=== PATIENT | female | born 1980 | race Caucasian/White ===

== ENCOUNTER → 2020-08-22 11:13 | Outpatient (CLI) | payer OTHER, SELFPAY ==
--- NOTE | ~2020-08-22 | MM_ITS ---
EXAMINATION: MM screening [facility] HISTORY: Screening TECHNIQUE: Craniocaudal and mediolateral oblique 3-D tomosynthesis images were obtained and synthetic 2-D images were generated. CAD analysis was submitted and interpreted. COMPARISON: Comparison to multiple prior studies sequentially, with oldest reviewed study dated 04/2015. BREAST PARENCHYMAL COMPOSITION: The breasts are heterogeneously dense, which may obscure small masses . FINDINGS: There is no evidence of suspicious mass, calcification, or architectural distortion to sugg est malignancy in either breast. There has been no suspicious interval change. IMPRESSION: 1. No mammographic evidence of malignancy. 2. Recommend routine screening mammography in one year. BI-RADS Category 1: Negative Reviewed, dictated and finalized at location A. M BLOCKER
== END ==
PROVIDERS: Visit Provider Obstetrics & Gynecology
DX: Z12.31 Encounter for screening mammogram for malignant neoplasm of breast (principal)
CPT/HCPCS: 77063; 77067

== ENCOUNTER → 2021-02-24 09:07 | Outpatient (CLI) | payer BC, SELFPAY ==
[2021-02-24 18:42] LABS: SARS-CoV-2 RNA PCR Negative
== END ==
PROVIDERS: PCP Internal Medicine; Visit Provider Clinical Nurse Specialist
DX: Z20.822 Contact with and (suspected) exposure to COVID-19 (principal); R06.02 Shortness of breath
CPT/HCPCS: C9803; U0003; U0005

== ENCOUNTER → 2021-04-04 06:33 | Outpatient (CLI) | payer BC, SELFPAY ==
[2021-04-04 17:24] LABS: SARS-CoV-2 RNA PCR Negative
== END ==
PROVIDERS: PCP Internal Medicine; Visit Provider Clinical Nurse Specialist
DX: R55 Syncope and collapse (principal); R05 Cough; Z20.822 Contact with and (suspected) exposure to COVID-19
CPT/HCPCS: C9803; U0003; U0005

== ENCOUNTER 2021-07-30 10:04 | Emergency (ER) | payer BC, SELFPAY ==
[2021-07-30 10:16] VITALS: BP 133/66; PULSE 88; RESP 16; TEMP 36.7; O2SAT 100
--- NOTE | 2021-07-30 10:35 | ED.FEMALEGU ---
HPI - Female Genitourinary General Chief complaint: Urogenital-Female Stated complaint: UTI Source: patient and RN notes reviewed Limitations: no limitations History of Present Illness HPI Narrative: The patient, a non-smoker/nondrinker presents with 1 day history of urinary frequency, urgency and mild dysuria associated with slightly worsening of chronic low back pain. No fever, vomiting/diarrhea, blood, .vaginal discharge -she declines STD testing moods are mild, worse with micturition. Related Data Home Medications Medication Instructions Recorded Confirmed levocetirizine 5 mg tablet 5 mg PO DAILY 08/04/20 07/30/21 azelastine-fluticasone 137 mcg-50 2 spray INTRANASAL ONCE g 07/04/21 07/30/21 mcg/spray nasal spray cholecalciferol (vitamin D3) 125 10,000 unit PO DAILY cap 07/04/21 07/30/21 mcg (5,000 unit) capsule melatonin 1 mg tablet 1 mg PO QHS 07/04/21 07/30/21 progesterone micronized 200 mg 300 mg PO QHS cap 07/04/21 07/30/21 capsule testosterone 20.25 mg/1.25 gram 1 pump TOPICAL DAILY 07/04/21 07/30/21 (1.62 %) transdermal gel pump thyroid (pork) 90 mg tablet 105 mg PO DAILY tablet 07/04/21 07/30/21 Allergies Allergy/AdvReac Type Severity Reaction Status Date / Time No Known Drug Allergies Allergy Unknown Unknown Verified 07/30/21 10:16 Sea Food Allergy Severe Dyspnea / Uncoded 07/30/21 10:16 SOB Review of Systems Review of Systems: General/Constitutional: No weight loss,fever Eyes: N0: Redness,discharge Ears/Nose/Throat: No: Epistaxis,ear discharge Respiratory: Denies: Hemoptysis Gastrointestinal: No Vomiting, Bleeding-rectal Skin: No Lumps, eruption Neurologic: No Focal Weakness,Sz Hematologic: Denies: Petechiae/Purpura Psychiatric: No: Suicida ideationl All Other Systems: Reviewed and Negative [facility] Past Medical History Medical History Anxiety Asthma delivery delivered x3 Chronic back pain Chronic neck pain Chronic shoulder pain COVID-19 Macromastia Miscarriage Other chronic pain Seasonal allergies Surgical History Surgical History History of breast augmentation History of removal of ovarian cyst 1996 Family History Family History Grandparent Family history of malignant neoplasm of breast Mother Family history of migraine headaches Patient's mother is in good health Father Patient's father is in good health Sibling Patient's brother is in good health Social History Social History Smoking status: Former smoker Smoking end date: 10/21/04 Alcohol intake: current Comments At time of signature, agree with nursing past medical, surgical, social and family history. There is no relevant family history pertinent to the presenting complaint Exam Narrative: General Appearance: Well appearing, No distress, Conjunctiva clear Mouth/Throat: Normal appearing, Normal lips, Supple Respiratory: Airway patent, No respiratory distress Abdomen: Soft, Non-tender, no CVAT Musculoskeletal: Full ROM Skin: Warm, Dry Neurological: A&O x3, CN II-X intact Psychiatric: Normal mood, Normal affect Course Vital Signs Vital signs: Vital Signs Temperature 98.0 F 07/30/21 10:16 Pulse Rate 88 07/30/21 10:16 Respiratory Rate 16 07/30/21 10:16 Blood Pressure 133/66 07/30/21 10:16 Pulse Oximetry 100 07/30/21 10:16 Temperature 98.0 F 07/30/21 10:16 Pulse Rate 88 07/30/21 10:16 Respiratory Rate 16 07/30/21 10:16 Blood Pressure 133/66 07/30/21 10:16 Pulse Oximetry 100 07/30/21 10:16 MDM - Female Genitourinary Lab Data Labs: Urine Glucose Negative Reference Range: Negative Urine Bilirubin Negative
== END 2021-07-30 10:40 | disposition home or self-care (01) ==
PROVIDERS: Emergency Provider Emergency Medicine; PCP Internal Medicine
DX: N30.00 Acute cystitis without hematuria (principal); Z87.891 Personal history of nicotine dependence; J45.909 Unspecified asthma, uncomplicated; Z86.16 Personal history of COVID-19
CPT/HCPCS: 81003; 87077; 87086; 87088; 87186; 99213; G0463

== ENCOUNTER 2022-04-17 10:10 | Emergency (ER) | payer BC, SELFPAY ==
[2022-04-17 10:25] VITALS: BP 131/75; PULSE 74; RESP 18; TEMP 37.2; O2SAT 100
--- NOTE | 2022-04-17 10:26 | ED.URI ---
HPI - URI/Sore Throat General Chief Complaint: Upper Respiratory Infection Stated Complaint: Cough,Body Aches,Sore Throat,Sinus Time Seen by Provider: 04/17/22 10:29 Source: patient, RN notes reviewed and old records reviewed Mode of arrival: ambulatory Limitations: no limitations History of Present Illness HPI Narrative: 41-year-old female who [facility] with complaints of cough, body aches, sore throat, and sinus congestion since Saturday. Patient reports that she has had COVID vaccinations but did not have flu shot this year. Patient does have history of asthma has had non-productive cough and chest feels a little tight with exertion has been using her inhaler, denies any wheezing noted or any acute dyspnea. MD elicited complaint: cough, sore throat, rhinorrhea, nasal congestion and other (Body aches) Pertinent past history: asthma Onset (ago): day(s) (2-3 days) Treatments prior to arrival: ibuprofen and other (inhaler, Xyzal, singulair, nasal spray) Related Data Home Medications Medication Instructions Recorded Confirmed levocetirizine 5 mg tablet (Xyzal) 5 mg PO DAILY 08/04/20 04/17/22 cholecalciferol (vitamin D3) 125 10,000 unit PO DAILY 07/04/21 04/17/22 mcg (5,000 unit) capsule (Dialyvite Vitamin D) melatonin 1 mg tablet 1 mg PO QHS 07/04/21 04/17/22 progesterone micronized 200 mg 300 mg PO QHS 07/04/21 04/17/22 capsule testosterone 20.25 mg/1.25 gram 1 pump topical DAILY 07/04/21 04/17/22 (1.62 %) transdermal gel pump thyroid (pork) 90 mg tablet 105 mg PO DAILY 07/04/21 04/17/22 albuterol 1 inh DIRECTED 04/17/22 04/17/22 Allergies Allergy/AdvReac Type Severity Reaction Status Date / Time Sea Food Allergy Severe Dyspnea / Uncoded 04/17/22 10:35 SOB Review of Systems Review of Systems: CONSTITUTIONAL: Denies fever, chills, or sweats. EYES: Denies visual changes, redness, or discharge. ENT: Positive for rhinorrhea, congestion, sore throat, no otalgia. CARDIOVASCULAR: Denies chest pain, palpitations, or edema. RESPIRATORY: Positive for dry cough denies any acute dyspnea, reports some tightness to chest with cough GASTROINTESTINAL: Denies abdominal pain, nausea, vomiting, or diarrhea. GENITOURINARY: Denies dysuria or hematuria. SKIN: Denies rash or itching. MUSCULOSKELETAL: Denies back pain, joint pain, reports body aches NEUROLOGIC: Denies headache, numbness, or weakness. PSYCHIATRIC: History of anxiety or depression. All systems reviewed & are unremarkable except as noted in HPI and below PMFSH Past Medical History Medical History (Updated 04/17/22 @ 10:58 by Elisha Mead NP) Anxiety Asthma delivery delivered x3 Chronic back pain Chronic neck pain Chronic shoulder pain COVID-19 Encounter for tubal ligation Macromastia Miscarriage Obesity Other chronic pain Seasonal allergies Surgical History Surgical History (Updated 04/17/22 @ 10:58 by Elisha Mead NP) History of breast augmentation History of removal of ovarian cyst 1996 History of tubal ligation Previous section Family History Family History Grandparent Family history of malignant neoplasm of breast Mother Family history of migraine headaches Patient's mother is in good health Father Patient's father is in good health Sibling Patient's brother is in good health Social History Social History (Updated 04/17/22 @ 10:48 by Elisha Mead NP) Social History: Caffeine-daily Coffee Smoking status: Former smoker Smoking end date: 10/21/04 Alcohol intake: current Alcohol use details: occasionally Substance use type: does not use Living arrangements: with family Gender identity (if verbalized by the patient): Female Comments At time of signature, agree with nursing past medical, surgical, social and family history. There is no relevant family history pertinent to the presenting complaint Exam Na
== END 2022-04-17 11:02 | disposition home or self-care (01) ==
PROVIDERS: Emergency Provider Registered Nurse; PCP Internal Medicine
DX: J06.9 Acute upper respiratory infection, unspecified (principal); R05.9 Cough, unspecified; Z20.822 Contact with and (suspected) exposure to COVID-19; Z87.891 Personal history of nicotine dependence; J45.909 Unspecified asthma, uncomplicated; Z86.16 Personal history of COVID-19
CPT/HCPCS: 87081; 87426; 87804; 87880; 99213; C9803; G0463

== ENCOUNTER 2023-01-15 19:25 | Emergency (ER) | payer OTHER, SELFPAY ==
[2023-01-15 19:36] VITALS: BP 124/81; PULSE 85; RESP 20; TEMP 36.2; O2SAT 100
--- NOTE | 2023-01-15 19:42 | ED.URI ---
HPI - URI/Sore Throat General Chief Complaint: Upper Respiratory Infection Stated Complaint: sob,cough Time Seen by Provider: 01/15/23 19:42 Source: patient Mode of arrival: ambulatory Limitations: no limitations History of Present Illness HPI Narrative: 42-year-old female with a history of asthma presented for complaint of cough and sore throat for 4 days. Also reports fatigue at the onset. She started taking penicillin prescribed by doctor [facility] 3 days ago, but states she is not feeling better. She is taking her scheduled Singulair, Claritin, and nasal sprays along with Mucinex and Advil. She used albuterol inhaler for the 1st time today. She denies shortness of breath, wheezing, chest tightness, dizziness, nausea, vomiting, fevers or chills. 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 Negative covid test at home today. Related Data Home Medications Medication Instructions Recorded Confirmed levocetirizine 5 mg tablet (Xyzal) 5 mg PO DAILY 08/04/20 01/15/23 cholecalciferol (vitamin D3) 125 10,000 unit PO DAILY 07/04/21 01/15/23 mcg (5,000 unit) capsule (Dialyvite Vitamin D) melatonin 1 mg tablet 1 mg PO QHS 07/04/21 01/15/23 progesterone micronized 200 mg 300 mg PO QHS 07/04/21 01/15/23 capsule testosterone 1 pump topical DAILY 07/04/21 01/15/23 thyroid (pork) 90 mg tablet 105 mg PO DAILY 07/04/21 01/15/23 penicillin V potassium 500 mg 500 mg PO BID 01/15/23 01/15/23 tablet Allergies Allergy/AdvReac Type Severity Reaction Status Date / Time Sea Food AdvReac Severe Dyspnea / Uncoded 01/15/23 19:34 SOB Review of Systems Review of Systems: CONSTITUTIONAL: Denies body aches, fever, chills, or sweats. EYES: Denies visual changes, redness, or discharge. ENT: Denies rhinorrhea, congestion, or otalgia. CARDIOVASCULAR: Denies chest pain, palpitations, or edema. RESPIRATORY: Reports cough, denies sob, wheezing. GASTROINTESTINAL: Denies abdominal pain, nausea, vomiting, or diarrhea. SKIN: Denies rash, itching, or wounds. MUSCULOSKELETAL: Denies back pain, joint pain, or myalgia. NEUROLOGIC: Denies headache, numbness, tingling, or weakness. All systems reviewed & are unremarkable except as noted in HPI and below PMFSH Past Medical History Medical History Anxiety Asthma delivery delivered x3 Chronic back pain Chronic neck pain Chronic shoulder pain COVID-19 Encounter for tubal ligation Macromastia Miscarriage Obesity Other chronic pain Seasonal allergies Surgical History Surgical History History of breast augmentation History of removal of ovarian cyst 1996 History of tubal ligation Previous section Family History Family History Grandparent Family history of malignant neoplasm of breast Mother Family history of migraine headaches Patient's mother is in good health Father Patient's father is in good health Sibling Patient's brother is in good health Social History Social History Social History: Caffeine-daily Coffee Smoking status: Former smoker Smoking end date: 10/21/04 Alcohol intake: current Alcohol use details: occasionally Substance use type: does not use Living arrangements: with family Gender identity (if verbalized by the patient): Female Comments At time of signature, I have reviewed and agree with nursing past medical, surgical, social and family history unless otherwise noted. Please see nursing chart for further information. There is no relevant family history pertinent to the presenting complaint Exam Narrative: GENERAL: Well-appearing, in no acute distress. EYES: EOMI. No redness or drainage. Conjunctivae normal. ENT: Mucous membranes pink and moist. No rhinorrhea. TMs normal bila
== END 2023-01-15 19:56 | disposition home or self-care (01) ==
PROVIDERS: Emergency Provider Nurse Practitioner Family; PCP Internal Medicine
DX: B34.9 Viral infection, unspecified (principal); Z87.891 Personal history of nicotine dependence; J45.909 Unspecified asthma, uncomplicated; E66.9 Obesity, unspecified; Z68.28 Body mass index [BMI] 28.0-28.9, adult; Z86.16 Personal history of COVID-19; F41.9 Anxiety disorder, unspecified
CPT/HCPCS: 99213; G0463

== ENCOUNTER → 2023-02-05 15:54 | Outpatient (CLI) | payer OTHER, SELFPAY ==
--- NOTE | ~2023-02-05 | MM_ITS ---
EXAMINATION: MM screening [facility] BI w chelsey HISTORY: Screening mammogram TECHNIQUE: Craniocaudal and mediolateral oblique 3-D tomosynthesis images were obtained and synthetic 2-D images were generated. CAD analysis was submitted and interpreted. COMPARISON: 08/22/2020, 01/26/2015, 01/25/2015 BREAST PARENCHYMAL COMPOSITION: The breasts are heterogeneously dense, which may obscure small masses . FINDINGS: No suspicious mass, calcification, or architectural distortion are identified in either vasiliy ast to suggest malignancy. There has been no suspicious interval change. IMPRESSION: 1. No mammographic evidence of malignancy. 2. Recommend routine screening mammography in one year. BI-RADS Category 1: Negative Reviewed, dictated and finalized at location A.
== END ==
PROVIDERS: PCP Obstetrics & Gynecology Gynecology; Visit Provider Obstetrics & Gynecology
DX: Z12.31 Encounter for screening mammogram for malignant neoplasm of breast (principal)
CPT/HCPCS: 77063; 77067

== ENCOUNTER 2024-01-27 13:31 | Outpatient (CLI) | payer OTHER, SELFPAY ==
--- NOTE | ~2024-01-27 | US_ITS ---
Pelvic ultrasound. Clinical History: Ovarian cyst Technique: Realtime transabdominal and transvaginal scanning of the pelvis was performed. Color flow Doppler and Doppler spectral analysis were performed. Findings: The uterus is anteverted. The endometrial stripe has a thickness of 7 mm. 1.2 x 0.6 x 0.7 cm hypoechoic area present along the posterior margin of the endometrial stripe, possibly ill-defined fibroid. Small nabothian cyst present. The right ovary measures 2.0 x 1.0 x 1.7 cm. No significant right ovarian or adnexal mass is seen. The left ovary measures 1.6 x 1.5 x 2.5 cm. No significant left ovarian or adnexal mass is seen. There is no evidence of free fluid in the cul de sac. Impression: Possible small ill-defined fibroids, as above. Reviewed, dictated and finalized at [facility]. Impression: Possible small ill-defined fibroids, as above.
== END 2024-01-27 13:32 ==
PROVIDERS: PCP Obstetrics & Gynecology Gynecology; Visit Provider Obstetrics & Gynecology Gynecology
DX: R10.31 Right lower quadrant pain (principal)
CPT/HCPCS: 76830

== ENCOUNTER 2024-06-06 08:45 | Outpatient (CLI) | payer OTHER, SELFPAY ==
--- NOTE | ~2024-06-06 | MM_ITS ---
EXAMINATION: MM screening [facility] w [facility] HISTORY: Screening TECHNIQUE: Craniocaudal and mediolateral oblique 3-D tomosynthesis images were obtained and synthetic 2-D images were generated. CAD analysis was submitted and interpreted. COMPARISON: Comparison to multiple prior studies sequentially, with oldest reviewed study dated 04/2015. BREAST PARENCHYMAL COMPOSITION: Not dense: There are scattered areas of fibroglandular density. FINDINGS: There is no evidence of suspicious mass, calcification, or architectural distortion to sugg est malignancy in either breast. There has been no suspicious interval change. IMPRESSION: 1. No mammographic evidence of malignancy. 2. Recommend routine screening mammography in one year. BI-RADS Category 1: Negative Reviewed, dictated and finalized at location B.
== END 2024-06-06 08:46 ==
PROVIDERS: PCP Obstetrics & Gynecology Gynecology; Visit Provider Obstetrics & Gynecology
DX: Z12.31 Encounter for screening mammogram for malignant neoplasm of breast (principal)
CPT/HCPCS: 77063; 77067

== ENCOUNTER 2024-12-08 15:01 | Outpatient (CLI) | payer OTHER, SELFPAY ==
--- NOTE | ~2024-12-08 | XR_ITS ---
EXAMINATION: [id number] Exam Date/Time: 12/08/2024 15:17 FREIGHT CHECKER HISTORY: R07.81 - Pleurodynia Comparison: None. RESULT: Lines, tubes, and devices: None. Lungs and pleura: Clear. Cardiomediastinal silhouette: Stable. Other: No acute osseous or upper abdominal finding. IMPRESSION: No acute cardiopulmonary process. No acute osseous finding in the left ribs Reviewed, dictated and finalized at location K. GHT CHECKER
== END 2024-12-08 15:02 | disposition home or self-care (01) ==
PROVIDERS: PCP Nurse Practitioner; Visit Provider Nurse Practitioner
DX: R07.81 Pleurodynia (principal)
CPT/HCPCS: 71101

== ENCOUNTER 2025-01-04 11:39 | Emergency (ER) | payer OTHER, SELFPAY ==
[2025-01-04 11:46] VITALS: BP 128/74; PULSE 72; RESP 16; TEMP 37.2; O2SAT 99
[2025-01-04 11:54] LABS: EDUAAPPEAR Mucus Threads; EDUABILI Negative (Negative); EDUABLOOD 2+ (Negative); EDUACOLOR1 Yellow; EDUAGLUCOSE Negative (Negative); EDUAKETONE Negative (Negative); EDUALEUKO 3+ (Negative); EDUANITRATE Positive (Negative); EDUAPH 8.5; EDUAPROTEIN 3+ (Negative); EDUAUROBILI 0.2
--- NOTE | 2025-01-04 12:06 | ED.FEMALEGU ---
HPI - Female Genitourinary General Chief complaint: Urogenital-Female Stated complaint: UTI Time Seen by Provider: 01/04/25 11:55 Source: patient, RN notes reviewed and old records reviewed Mode of arrival: ambulatory Limitations: no limitations History of Present Illness HPI Narrative: 44-year-old female presents to the [facility] with complaints frequency, urgency and burning with urination that started last night. Noticed blood in her urine this morning. Related Data Home Medications ?Medication ?Instructions ?Recorded ?Confirmed ?Last Taken ?Type cholecalciferol (vitamin D3) 125 10,000 unit PO DAILY 07/04/21 12/08/24 Unknown History mcg (5,000 unit) capsule (Dialyvite Vitamin D) melatonin 1 mg tablet 1 mg PO QHS 07/04/21 12/08/24 Unknown History progesterone micronized 200 mg 300 mg PO QHS 07/04/21 12/08/24 Unknown History capsule testosterone 1 pump topical DAILY 07/04/21 12/08/24 Unknown History thyroid (pork) 90 mg tablet 105 mg PO DAILY 07/04/21 12/08/24 Unknown History cetirizine 10 mg tablet (Zyrtec) 10 mg PO DAILY PRN 07/08/24 12/08/24 Unknown History multivitamin (Multiple Vitamins 1 tablet PO DAILY 12/08/24 12/08/24 Unknown History tablet) Allergies Allergy/AdvReac Type Severity Reaction Status Date / Time Sea Food AdvReac Severe Dyspnea / Uncoded 01/04/25 11:41 SOB Review of Systems Review of Systems: All systems reviewed & are unremarkable except as noted in HPI and below Constitutional: Constitutional: Reports no additional constitutional complaints ENT: Reports system reviewed and no additional complaints, except as documented Cardiovascular: Cardiovascular: Reports no additional cardiovascular complaints, Denies chest pain and Denies dyspnea Respiratory: Respiratory: Reports no additional respiratory complaints, Denies chest congestion, Denies cough and Denies dyspnea Genitourinary: Genitourinary: Reports as per HPI Musculoskeletal: Musculoskeletal: Reports no additional musculoskeletal complaints Integumentary/Breasts: Skin/Breast: Reports system reviewed and no additional complaints, except as docu PMFSH Past Medical History Medical History Encounter for tubal ligation Obesity COVID-19 delivery delivered x3 Miscarriage Asthma Anxiety Chronic back pain Chronic neck pain Chronic shoulder pain Macromastia Other chronic pain Seasonal allergies Surgical History Surgical History History of tubal ligation Previous section History of breast augmentation History of removal of ovarian cyst 1996 Family History Family History Grandparent Family history of malignant neoplasm of breast Mother Family history of migraine headaches Patient's mother is in good health Father Patient's father is in good health Sibling Patient's brother is in good health Social History Social History Social History: Caffeine-daily Coffee Smoking status: Former smoker Smoking end date: 10/21/04 Alcohol intake: current Alcohol use details: occasionally Substance use type: does not use Lack of Transportation: No Lack of Food: Never True Current Housing: I Have Housing Concerned About Future Housing: No Difficulty Paying Gas/Electric Bills: No Difficulty Paying for Meds: No Currently Unemployed: No Education: Master's Degree or Higher Difficulty w/ Childcare or Family Care: No Living arrangements: with family Gender identity (if verbalized by the patient): Female Comments At the time of my signature, I reviewed and agree with the nursing past medical, surgical, social, and family history. There is no relevant family history pertinent to the patient complaint. Exam Const: General: cooperative, healthy appearing, comfortable, no acute distress, well developed, alert and well nourished Nutritional Appearance: well nourished Orientation/consciousness: patient oriented x3 Limitations: no limitations HENMT: Head: normal to inspection Eyes: General: appearance normal, both eyes and all related structures Alignment and Position: alignment normal Neck: Neck: normal visual inspection, full ROM, no lymphadenopathy and no meningeal signs Chest: Chest palpation & inspection: normal inspection of the chest Resp: Effort & Inspection: normal respiratory effort and able to speak in complete sentences Auscultation: clear to auscultation bilaterally, no crackles, no rales, no rhonchi and no wheezes Cardio: Rate: regular rate GI: GI Palp: No abdominal tenderness : General: Yes no CVA tenderness Skin: General skin exam: normal color and no rashes or lesions noted Neuro: General: patient oriented x3, gait normal, moves all extremities and no meningeal signs Cognition (Neuro): normal cognition Speech: normal speech Gait exam (Neuro): Normal gait present Extrem: General: normal to inspection, full ROM, capillary refill normal and normal gait Psych: Appearance: grossly normal and well kempt Mental Status: mental status grossly normal Speech and movement: Normal speech and movement present and Clear speech present Affect: normal affect Attitude: cooperative Course Course Level of Care: [facility] Visit Vital Signs Vital signs: Vital Signs Temperature 98.9 F 01/04/25 11:46 Pulse Rate 72 01/04/25 11:46 Respiratory Rate 16 01/04/25 11:46 Blood Pressure 128/74 01/04/25 11:46 Pulse Oximetry 99 01/04/25 11:46 Oxygen Delivery Room Air 01/04/25 11:46 Temperature 98.9 F 01/04/25 11:46 Pulse Rate 72 01/04/25 11:46 Respiratory Rate 16 01/04/25 11:46 Blood Pressure 128/74 01/04/25 11:46 Pulse Oximetry 99 01/04/25 11:46 Oxygen Delivery Room Air 01/04/25 11:46 Reviewed MDM - Female Genitourinary MDM Narrative Medical decision making narrative: Patient sitting comfortably exam room. Nontoxic stable. Patient presents for urinary symptoms. Urine dip shows positive leukocytes, nitrites and blood. Will start on antibiotic, will culture. Patient appropriate for outpatient treatment with close follow-up Discharge instructions reviewed with patient, as well as provided in writing per nursing staff. The instructions also include specific and strict return/GO TO THE ER as well as f/u information. All questions have been answered, and the patient deny any further questions with discharge and discharge plan. Some parts of this dictation were generated by voice recognition software and may contain typographical and/or grammatical inaccuracies. Differential Diagnosis Differential diagnosis: Likely urinary tract infection and cystitis Lab Data Labs: Lab Results 01/04/25 Range/Units 11:52 POC Urine Color Yellow POC Urine Clarity Mucus threads POC Urine pH 8.5 POC Ur Specif Viola 1.020 POC Urine Protein 3+ (Negative) POC Ur Glucose (UA) Negative (Negative) POC Urine Ketones Negative (Negative) POC Urine Blood 2+ (Negative) POC Urine Nitrite Positive (Negative) POC Urine Bilirubin Negative (Negative) POC Urine Urobilinogen 0.2 POC U Leukocyte Esteras 3+ (Negative) Reviewed Critical Care Time Critical Care Time Critical Care Time: No Discharge Plan Discharge Clinical Impression: Urinary tract infection Qualifiers: Urinary tract infection type: acute cystitis Hematuria presence: without hematuria Qualified Code(s): N30.00 - Acute cystitis without hematuria Patient Disposition: Home, Self-Care Condition: Stable Instructions: Antibiotic Form, Urinary Tract Infection in Women (DC) Additional Instructions: Increased water intake Take Tylenol as needed for pain Take antibiotic as prescribed Today your urine dip showed a probability of a UTI. You have been prescribed an antibiotic. Your urine will be sent to our lab for a culture. If at that time a bacteria grows that is not covered by the antibiotic prescribed you will be notified. Follow-up with primary care For new or worsening symptoms go directly to the emergency room Patient Language: Rwandan Prescriptions: New amoxicillin-pot clavulanate 875-125 mg tablet 1 tablet PO Q12H 5 Days Qty: 10 0RF No Action progesterone micronized 200 mg capsule 300 mg PO QHS testosterone 20.25 mg/1.25 gram (1.62 %) gel in metered-dose pump 1 pump topical DAILY Rx Instructions: apply 1 pump amount over max area of ONE upper arm and shoulder cholecalciferol (vitamin D3) [Dialyvite Vitamin D] 125 mcg (5,000 unit) capsule 10,000 unit PO DAILY thyroid (pork) 90 mg tablet 105 mg PO DAILY melatonin 1 mg tablet 1 mg PO QHS cetirizine [Zyrtec] 10 mg tablet 10 mg PO DAILY PRN multivitamin [Multiple Vitamins] Tablet 1 tablet PO DAILY montelukast 10 mg tablet See Rx Instructions .ROUTE .COMPLEX Qty: 90 3RF Dose Instruction: TAKE 1 TABLET DAILY Rx Instructions: TAKE 1 TABLET DAILY sertraline 100 mg tablet See Rx Instructions .ROUTE .COMPLEX Qty: 90 3RF Dose Instruction: TAKE 1 TABLET DAILY Rx Instructions: TAKE 1 TABLET DAILY Follow-up/Referrals: Sky Boswell DO [Primary Care Provider] - 2 Weeks ([facility] follow-up) Stand Alone Forms: Work/School Release IP Time of Disposition: 12:01
--- OUTSIDE RECORDS SUMMARY | 2025-01-04 14:12 | XMS_ITS | Clinical Summary ---
Author Organization [facility] Address [facility] [place] [address] Care Team Providers Care At Home Independent Call Center Agent Name Role Phone Caitlinradhawaleska Sky Carson DO Primary Care Provider [phone] Wale Unger MD Unavailable Felipe Burleson MD Unavailable [phone] Source Comments [facility],non-owned Affiliates and Associated Physician Practices is amultiple site organization consisting of ambulatory clinics and hospital sitesin [place], [place], [place] and [place]. This disclosure is being madepursuant to the Care Everywhere program and may not contain all information available regarding this patient. Last updated 18.[facility] Allergies No known active allergies Medications * Be aware that medications may not be up to date on this document. Alwaysverify current medications with the patient. Medication Sig Dispensed Refills Start Date End Date Status Vit-Fe Fumarate-FA ( VITAMIN) 28-0.8 MG tablet Take 1 Tab by mouth once daily Active montelukast (SINGULAIR) 10 MG tablet Take 10 mg by mouth at bedtime Active cetirizine (ZYRTEC) 10 MG tablet Take 10 mg by mouth once daily Active senna (SENOKOT) 8.6 MG tablet Take by mouth once daily Active sertraline (ZOLOFT) 50 MG tablet Take 50 mg by mouth once daily Active Active Problems Patient Care Coordination No te Formatting of this note migh t be different from the original. [id number] Problem Noted Date Diagnosed Date Supervision of elderly multigravida in first tri mester 10/04/2015 Advanced maternal age in multigravida Previous delivery, antepartum condition or complication IUFD (intrauterine ) Family History Medical History Relation Name Comments Thyroid Disease Maternal Grandmother Thyroid Disease Mother Relation Name Status Comments Maternal Grandmother Mother Social History Tobacco Use Types Packs/Day Years Used Date Smoking Tobacco: Former Cigarettes Q uit: 07/21/2007 Alcohol Use Standard Drinks/Week Comments No 0 (1 standard drink = 0.6 oz pur e alcohol) social prior to Sex and Gender Information Value Date Recorded Sex Assigned at Not on file Gender Identity Not on file Sexual Orientation Not on file Last Filed Vital Signs Vital Sign Reading Time Taken Comments Blood Pressure 126/80 05/20/2017 10:16 AM CDT Pulse 66 05/20/2017 10:16 AM CDT Temperature - - Respiratory Rate - - Oxygen Saturation - - Inhaled Oxygen Concentration - - Weight 77.6 kg (171 lb) 05/20/2017 10:16 AM CDT Height 160 cm (5' 3 ) 05/20/2017 10:16 AM CDT Body Mass Index 30.29 05/20/2017 10:16 AM CDT Plan of Treatment Health Maintenance Due Date Last Done Comments COLOGUARD (AGES 45-75) - COL ON CA SCREENING 1979 COLON MONITORING 1979 COLONOSCOPY - COLON CA SCREENING 1979 CT COLONOGRAPHY - COLON CA SCREENING 1979 Colorectal Cancer Screening 1979 FIT - COLON CA SCREENING 1979 FLEX SIG - COLON CA SCREENING 1979 LIPID TESTING 1979 MAMMOGRAM 1979 PAP SMEAR 1979 HIV SCREENING 1994 HEPATITIS C SCREENING 08/21/1997 DTAP/TDAP/TD VACCINES (1 - Tdap) 1998 HEPATITIS B VACCINE (1 of 3 - 19+ 3-dose series) 1998 COVID-19 VACCINE ( - 2023-2 5 season) 2024 INFLUENZA VACCINE (#1) 2024 DEPRESSION SCREENING 10/21/2024 ZOSTER VACCINE (1 of 2) 2029 HIB VACCINE Aged Out No longer eligi ble based on patient's age to complete this topic HPV VACCINE Aged Out No longer eligi ble based on patient's age to complete this topic MENINGOCOCCAL (Group B) VACC INE SHARED DECISION-MAKING Aged Out No longer eligibl e based on patient's age to complete this topic MENINGOCOCCAL GROUPS A/C/Y/W VACCINE Aged Out No longer eligible b ased on patient's age to complete this topic PNEUMOCOCCAL VACCINE Aged Out No long er eligible based on patient's age to complete this topic Care Teams At Home Independent Call Center Agent Relationship Specialty Start Date End Date Sky Boswell DO PCP - General Internal Medicine 05/20/17 [place] [address] [facility] [address] [place] [address] Endocrinology 05/20/17 Felipe Burleson MD [address] [facility] [address] [place], [place] [id number] Obstetrics and Gynecology 05/20/17
--- OUTSIDE RECORDS SUMMARY | 2025-01-04 14:12 | XMS_ITS | Encounter Summary ---
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 Historical Provider Final Res ult * PROCEDURE - RESULT (02/28/2018 12:00 AM CDT) Narrative 02/28/2018 12:00 AM CDT Ordered by an unspecified provider. us Historical Provider Final Res ult documented in this encounter Visit Diagnoses Not on filedocumented in this encounter Care Teams Net Web Application Developer Relationship Specialty Start Date End Date Sky Boswell DO PCP - General Internal Medicine 09/26/21 documented as of this encounter
--- OUTSIDE RECORDS SUMMARY | 2025-01-04 14:12 | XMS_ITS | Patient Health Record ---
Author Organization [facility] Address [address] [place] [address] Care Team Providers Care Lard Tub Washer Name Role Phone Sky Boswell Primary Care Provider Unavailab le Lina Verma Unavailable [phone] [employer], Provider Unavailable Unavailab le Allergies No Known Allergies Reason For Referral No Information Medications Medication SIG (Take, Route, Frequency, Duration) Notes Start Date End Date Status Xyzal Allergy 24HR 5 MG 1 tablet PO daily for 30 Active NASAL WASHES N/A DIRECTED INTRANASALLY NEEDED for 30 *Please review for potential replacement for e-prescription and drug interaction check* Active Zoloft 50 MG 1 tab(s) orally once a day for 30 day(s) Active XYZAL 5 mg 1 tablet PO daily for 30 Active Azelastine HCl 137 MCG/SPRAY 2 spray(s) intranasally 2 times a day for 90 days Active SINGULAIR 10 mg 1 tab(s) orally once a day for 90 days Active ZOLOFT 50 mg 1 tab(s) orally once a day for 30 day(s) Active PROAIR HFA 90 MCG/INH 2 PUFF(S) INHALED 4 TIMES A DAY for 30 DAY(S) *Please review for potential replacement for e-prescription and drug interaction check* Active AZELASTINE HYDROCHLORIDE NASAL 137 mcg/inh 2 spray(s) intranasally 2 times a day for 90 days Active Singulair 10 MG 1 tab(s) orally once a day for 90 days Active Social History Tobacco Use: Social History Observation Description Date Details (start date - stop date) Former Smoker NA - NA Smoking Smart Form: Question Answer Notes Are you a: former smoker Problems Problem Type SNOMED Code ICD Code Onset Dates Problem Status W/U Status Risk Notes Problem Chronic allergic conjunctivitis (35652128) Other chronic allergic conjunctivitis (H10.45) Active confirmed Problem Allergic rhinitis caused by pollen (disorder) (37149180) Allergic rhinitis due to pollen (J30.1) Active confirmed Problem Allergic rhinitis (03085908) Other allergic rhinitis (J30.89) Active confirmed Problem Uncomplicated mild persistent asthma (553724152) Mild persistent asthma, uncomplicated (J45.30) Active confirmed Problem Dermatitis (656786027) Dermatitis, unspecified (L30.9) Active confirmed Problem Cough (80398202) Cough (R05) Active confirmed Problem Allergic rhinitis caused by animal hair and dander (407061895754424) Allergic rhinitis due to animal (cat) (dog) hair and dander (J30.81) Active confirmed Problem Allergy to seafood (95837070) Allergy to seafood (Z91.013) Active confirmed Problem Allergy status t o other drugs, medicaments and biological substances (Z88.8) Active confirmed Encounters Encounter Location Date Provider Diagnosis [address] [address] 04/04/2024 Provider Bright Mild persistent asthma, uncomplicated J45.30 and Allergic rhinitis due to pollen J30.1 Assessments Encounter Date Diagnosis (ICD Code) Assessment Notes Treatment Notes Treatment Clinical Notes Section Notes 04/04/2024 Mild persistent asthma, uncomplicated (ICD-10 - J45.30) 04/04/2024 Allergic rhinitis due to pollen (ICD-10 - J30.1) Plan Of Treatment No Information Insurance Providers Payer Name Payer Address Payer Phone Subscriber Number Group Number Insured Name Patient Relationship to Insured Coverage Start Date Coverage End Date [facility] [address] [address] [place] [phone] [id number] Jackie Sargent Self - patient is the insured Medical (General) History Medical History History ICD Code Anxiety disorder, unspecified Mild intermittent asthma, uncomplicated Allergic rhinitis due to pollen Allergic rhinitis due to animal (cat) (d og) hair and dander Surgical History Surgery Date(Month/Year) ,, ovarian surgery-Cyst 1997 ablasion, tubal removal 2017 breast reduction 2018 Hospitalization History Reason Date(Month/Year) ,,
--- OUTSIDE RECORDS SUMMARY | 2025-01-04 14:12 | XMS_ITS ---
Author Organization [facility] Address [address] [place] [address] Care Team Providers Care Mate Ship Name Role Phone Sky Boswell Primary Care Provider Unavailab Lina Birch Unavailable [phone] REASON FOR VISIT Asthma follow-up Encounters Encounter Location Date Provider Diagnosis [facility] [address] [place] [address] 08/28/2023 Lina Verma Plan Of Treatment No Information Progress Notes * Herb BERKOWITZB:1980 (44 yo F)Acc No.[id number]:08/28/2023 Asthma F/U Patient: Jackie NOVAK Provider: Dagmar Verma MD :1980 A ge:43 Y S ex:Female Date:08/28/2023 Address[address] [facility] Pcp:Sky Boswell Subjective: * Chief Complaints: * 1 . Asthma follow-up. * Medical History: Objective: * Vitals: Assessment: Plan: * Treatment: * Billing Information: * Visit Code: * Procedure Codes: * Electronic signature of Sheron Verma MD on 01/04/2025 at 02:12 PM CDT Sign off status: Pending * Provider: Dagmar Verma MD Date: 10/28/2022 Generated for Solo larose/Lea/Giovanni on: 0 01/04/2025 02:12 PM CDT
--- OUTSIDE RECORDS SUMMARY | 2025-01-04 14:12 | XMS_ITS | Clinical Summary ---
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 Gender Identity Not on file Sexual Orientation Not on file Plan of Treatment Health Maintenance Due Date Last Done Comments Hepatitis C Virus (HCV) Screening 1979 TdaP Immunization 1979 Hepatitis B Immunization (1 of 3 - 19+ 3-dose series) 1998 Pap Smear 2000 Cervical Cancer Screening (CCS) 2009 HPV/Cotest 2009 Discussion re Starting/Frequency of Mammograms 2019 Influenza Immunization (#1) 2024 SARS-COV-2 Immunization (2023- season) 2024 11/15/2021, 05/11/2021, 05/11/2021 Colonoscopy 2024 Colorectal Cancer Screening 2024 Respiratory Syncytial Virus (RSV) Immunization (Adult) (1 - 1-dose 75+ series) 2054 Meningococcal Immunization (ACWY) Aged Out No longer eligible b ased on patient's age to complete this topic Pneumococcal Immunization Combined Aged Out No longer eligible b ased on patient's age to complete this topic Rotavirus Immunization Aged Out No lo nger eligible based on patient's age to complete this topic
--- OUTSIDE RECORDS SUMMARY | 2025-01-04 14:12 | XMS_ITS | Patient Health Summary ---
Author Organization [facility] Address [address] [facility] [place] [address] Care Team Providers Care Plastic Boat Patcher Name Role Phone Sky Boswell DO Primary Care Provider Wale Unger MD Unavailable Felipe Burleson MD Unavailable [phone] Note from [facility],non-owned Affiliates and Associated Physician Practices is amultiple site organization consisting of ambulatory clinics and hospital sitesin [place], [place], [place] and [place]. This disclosure is being madepursuant to the Care Everywhere program and may not contain all information available regarding this patient. Last updated 18.[facility] Allergies No known active allergies Medications * Be aware that medications may not be up to date on this document. Alwaysverify current medications with the patient. * Vit-Fe Fumarate-FA ( VITAMIN) 28-0.8 MG tablet Take 1 Tab by mouth once daily * montelukast (SINGULAIR) 10 MG tablet Take 10 mg by mouth at bedtime * cetirizine (ZYRTEC) 10 MG tablet Take 10 mg by mouth once daily * senna (SENOKOT) 8.6 MG tablet Take by mouth once daily * sertraline (ZOLOFT) 50 MG tablet Take 50 mg by mouth once daily Active Problems Problem Noted Date Diagnosed Date Supervision of elderly multigravida in [facility] 10/04/2015 Advanced maternal age in multigravida Previous delivery, antepartum condition or complication IUFD (intrauterine ) Social History Tobacco Use Types Packs/Day Years [...] Mass Index 30.29 05/20/2017 10:16 AM CDT Procedures * T3 FREE(Performed 06/25/2017) Performed for Thyroid nodule * T4 FREE(Performed 06/25/2017) Performed for Thyroid nodule * TSH(Performed 06/25/2017) Performed for Thyroid nodule * T4 FREE (EXTERNAL RESULT ENTRY)(Performed 05/08/2017) * TSH (EXTERNAL RESULT ENTRY)(Performed 05/08/2017) * SONOGRAM - COMPLETE(Performed 04/10/2017) Performed for Supervision of elderly multigravida in first trimester (HCC), Recurrent loss, antepartum condition or complication ([facility]) * T4 FREE (EXTERNAL RESULT ENTRY)(Performed 03/08/2017) * T4 FREE (EXTERNAL RESULT ENTRY)(Performed 03/08/2017) * TSH (EXTERNAL RESULT ENTRY)(Performed 03/08/2017) * SONOGRAM - COMPLETE(Performed 03/06/2017) Performed for Supervision of elderly multigravida in first trimester (HCC), Previous delivery, antepartum condition or complication (HCC) * T4 FREE (EXTERNAL RESULT ENTRY)(Performed 11/05/2016) * TSH (EXTERNAL RESULT ENTRY)(Performed 11/05/2016) * SONOGRAM - COMPLETE(Performed 09/04/2016) Performed for Advanced maternal age in multigravida, first trimester (HCC), Previous delivery, antepartum condition or complication (HCC) * T4 FREE (EXTERNAL RESULT ENTRY)(Performed 12/06/2015) * TSH (EXTERNAL RESULT ENTRY)(Performed 12/06/2015) * SONOGRAM - COMPLETE(Performed 11/28/2015) Performed for Supervision of other high risk pregnancies, second trimester (HCC) * SONOGRAM - COMPLETE(Performed 10/04/2015) Results * T3 FREE (06/25/2017 3:09 PM CDT) T3 Free 2.4 2.0 - 4.4 pg/mL [facility] INSURANCE BILL Blood BLOOD SPECIMEN / Unknown 06/25/2017 3:09 PM CDT 06/25/2017 Narrative Resulting Agency Comment [facility] [address] [facility] [phone] Wale Unger MD LAB - CHEMISTRY ERON SOTO Performing Organization Address City/[facility] [place]/ZIP Co de Phone Number [facility] INSURANCE BILL [address] [place] [address] * TSH (06/25/2017 3:09 PM CDT) TSH 1.310 0.450 - 4.500 uIU/mL [facility] INSURANCE BILL Blood BLOOD SPECIMEN / Unknown 06/25/2017 3:09 PM CDT 06/25/2017 Narrative Resulting Agency Comment [facility] [address] [facility] [phone] Wale Unger MD LAB - CHEMISTRY ERON SOTO Performing Organization Address City/[facility] [place]/ZIP Co de Phone Number [facility] INSURANCE BILL [address] [place] [address] * T4 FREE (06/25/2017 3:09 PM CDT) T4 Free 0.93 0.82 - 1.77 ng/dL [facility] INSURANCE BILL Blood BLOOD SPECIMEN / Unknown 06/25/2017 3:09 PM CDT 06/25/2017 Narrative Resulting Agency Comment [facility] [address] [facility] [phone] Wale Unger MD LAB - CHEMISTRY ERON SOTO [facility] INSURANCE BILL [address] [place] [address] * (ABNORMAL) TSH (EXTERNAL RESULT ENTRY) (05/08/2017) Only the most recent of4 resultswithin the time period is included. TSH (EXTERNAL RESULT) 0.347(A) 0.465 - 4.680 uIU/mL Blood BLOOD SPECIMEN / Unknown 05/08/2017 Historical Provider MD LAB - CHEMISTRY O RDERABLES * T4 FREE (EXTERNAL RESULT ENTRY) (05/08/2017) Only the most recent of5 resultswithin the time period is included. T4 Free (EXTERNAL RESULT) 0.79 0.78 - 2.19 ng/dl Blood BLOOD SPECIMEN / Unknown 05/08/2017 Historical Provider MD LAB - CHEMISTRY O RDERABLES * SONOGRAM - COMPLETE (04/10/2017 9:47 AM CDT) Only the most recent of5 resultswithin the time period is included. Anatomical Region Laterality Modality Other 04/10/2017 9:47 AM CDT Narrative 04/10/2017 11:16 AM CDT [facility] PHONE: FAX: Pat. Name: CRISTHIAN BERKOWITZ Pat. No: [id number] Study Date: 04/10/2017 9:47am , Age: 10 1980, 36 Pregnancies: 5, Para 3, Ab 1 Height: 62 in Weight: 167 lb LMP: 12/29/2016 GA by LMP: 14w4d GA by 1st: 14w4d GA by US: 14w3d GA Selected: 14w4d (LMP) KARTHIK: 10/05/2017 Referring MD: FELIPE BURLESON MD Maintenance Helper: Delmy Hampton [facility] CPT4: 92810 BMI: 30.54 Hist/Ind: Viability 17-19 week demise in 11/2015 <20 week demise 10/2016 AMA Unicornuate uterus History of CD x 3 Class I obesity MEASUREMENTS & AGE GROWTH EVALUATION Measurement GA Range Srce %for GA Ratios ----- ---- ------- BPD 2.7 cm 14w5d ([id number]) Hadl BPD 53% FL/BPD 0.49 HC 10.0 cm 14w5d (93o1p-47t2n) Hadl HC 52% FL/AC 0.16 AC 8.1 cm 14w3d (55n6u-58y0z) Hadl AC 47% HC/AC 1.23 (1.11 - 1.30) FL 1.3 cm 13w6d (18v1k-06m3z) Hadl FL 26% CI 0.76 GA for sonogram 14w3d ([id number]) Weight Estimate: based on (BPD,HC,AC,FL) Avg Weight: 93 gm (79-107) Hadlock : 0lbs, 3oz Normal: 107 gm (89-126) Hadlock Wt% 19% for 14w4d Heart Rate: 155 bpm CLINICAL SUMMARY Study Number: 1 A single fetus is identified in cephalic presentation. The measurements today are consistent with appropriate growth compared to previous study. The KARTHIK selected is based on her LMP and a prior ultrasound examination (confirmed). The amniotic fluid volume is within normal limits. The placenta is anterior. No major malformations are seen within the limitations of ultrasound examination. The patient was advised that ultrasound does not allow detection of all structural or chromosomal abnormalities. IMPRESSION: 1. Single, live, IUP at 14w4d 2. AGA size 3. Normal amniotic fluid volume 4. Anterior placenta 5. Anatomy survey is incomplete and limited by positioning, early gestational age, and maternal body habitus. RECOMMEND: Follow up ultrasound in 4 weeks to complete anatomic survey and assess growth. Consider follow growth at approximately 4 week intervals with history of maternal uterine anomaly. Patient plans to have all future OB ultrasounds at primary OB provider with Dr. Burleson. Thank you for allowing us the opportunity to care for your patient. Matt Arroyo MD <Electronic Signature> 04/10/2017 11:16am Fabio Barker MD [facility] ORDERABLES Care Teams Plastic Boat Patcher Relationship Specialty Start Date End Date Sky Boswell DO PCP - General Internal Medicine 05/20/17 [place] [address] [facility] [address] [place] [id number] Endocrinology 05/20/17 Felipe Burleson MD [address] [place], [place] [id number] Obstetrics and Gynecology 05/20/17
--- OUTSIDE RECORDS SUMMARY | 2025-01-04 14:12 | XMS_ITS | Continuity of Care Document ---
Author Organization [facility] Address [address] [place] [address] [place] [address] Phone Care Team Providers Care Drug Abuse Program Coordinator Name Role Phone Leodan Barnhart MD Unavailable Unavailable Allergies, Adverse Reactions, Alerts Substance Reaction Status Criticality No Known Allergies Active No Inform ation Medications Medication Instructions Dosage Effective Dates (start - stop) Status Comments naproxen 500 mg tablet take 1 tablet by oral route 2 times every day with food 500 MG - Active Singulair 10 mg tablet take 1 tablet (10MG) by oral route every day in the evening 10 MG - Active Zoloft 50 mg tablet take 1 tablet (50MG) by oral route every day 50 MG - Active Procedures Procedure Date OFFICE/OUTPATIENT VISIT, EST PREV VISIT, EST, AGE 18-39 OFFICE/OUTPATIENT VISIT, EST PREV VISIT, EST, AGE 18-39 OFFICE/OUTPATIENT VISIT, EST PREV VISIT, NEW, AGE 18-39 Advance Directives Directive Yes / No Effective Date File Name No Information Encounters Encounter Description Practice Location Reason(s) For Visit Diagnoses Date Provider Providers Copied on Encounter [facility], [address] [place], [id number], tel:[phone] [facility] Medicine No Information 6 Obey Alcocer. [address] [facility] [place], [address] , [place]. tel:[phone] Referring Provider: Leodan Barnhart, [address] [facility] [address], [place], [place], [address]. tel:[phone] OFFICE/OUTPA TIENT VISIT, EST [facility], [address], [place], [place], [address], [place] tel:[phone] [facility] Medicine cyst (chief complaint) foot pain (chief complaint) foot pain (chief complaint) Joint ganglion cystFoot pain 5 Obey Alcocer. [address], [place], [place], [address] , [place]. [phone] Referring Provider: Rajiv [address], [place], [place], [address]. tel:[phone] PREV VISIT, EST, AGE 18-39 [facility], [address], [place], [place], [address], [place] tel:[phone] [facility] Phsycal (chief complaint) Dietary surveillance and counselingRoutine medical exam 5 Obey Alcocer. [address], [place], [place], [address] , [place]. [phone] Referring Provider: Rajiv [address], [place], [place], [id number]. tel:[phone] OFFICE/OUTPA TIENT VISIT, EST [facility], [address], [place], [place], [address], [place] [phone] [facility] Medicine anixety (chief complaint) allergy (chief complaint) thyroid nodule (chief complaint) seasick (chief complaint) AsthmaNontoxic uninodular goiterMotion sicknessGeneralized anxiety disorder Jan- 5 Obey Alcocer. [address], [place], [place], [address] , [place]. [phone] Referring Provider: Rajiv [address], [place], [place], [address]. tel:[phone] PREV VISIT, EST, AGE 18-39 [facility], [address], [place], [place], [address], [place] tel:[phone] [facility] PHysical (chief complaint) Routine Medical ExamRoutine Medical Exam 4 Obey Alcocer. [address], [place], [place], [address] , [place]. tel:[phone] Referring Provider: Leodan Barnhart, [address], [place], [place], [address]. tel:[phone] OFFICE/OUTPA TIENT VISIT, [facility], [address], [place], [place], [address], [place] tel:[phone] [facility] asthma (chief complaint) Dietary surveillance and counselingAsthma 3 Obey Alcocer. [address], [place], [place], [address] , [place]. tel:[phone] Referring Provider: Rajiv [address], [place], [place], [address]. tel:[phone] PREV VISIT, NEW, AGE 18-39 [facility], [address], [place], [place], [address], [place] tel:[phone] [facility] physical (chief complaint) Dietary surveillance and counselingRoutine Medical ExamRoutine Medical Exam 2 Obey Alcocer. [address], [place], [place], [address] , [place]. tel:[phone] Referring Provider: Rajiv Elliott [address] [facility] [address], [place], [place], [address]. tel:[phone] Family History Family Member Type Diagnosis Age At Onset Mother Problem (finding) Alive and well Brother Problem (finding) Asthma Father Problem (finding) Alive and well Payers Payer name Insurance type Covered libertarian ID Authoriza tion(s) No Information Social History Type Description Quantity Date Captured Comments Sex Female Smoking Status No Information Chief Complaint And Reason For Visit No Information Plan Of Treatment Date Type Action Status Goal Tobacco cessation counseling completed Referral Ordered: Plastic Surgery (related to Joint ganglion cyst) ordered Referral Ordered: Referrals: Plastic Surgery. Evaluate and treat ordered Referral Ordered: MRI LOWER EXTREMITY W/O DYE Right ordered Referral Ordered: FOOT XRAY, TWO VIEW Right ordered Referral Ordered: US THYROID ordered Referral Ordered: CHEST X-RAY PA/LAT TWO-VIEWS ordered History Of Present Illness Encounter Date Complaint History Of Prese nt Illness cyst Pt notices mildl y painful cyst on right wrist for two weeks. Pt denies any injury. Pt states that sometimes her wrist feels catching due to cyst. Pt denies any numbness foot pain Location: foot. Additional information: Pt has chronic right foot pain for 5 months Pt denies any injury. Pt c/o intermittent sharp pain dorsal right foot and also involving the plantar side. Pt states that the pain seems worse in the morning and if she stands on her foot for long time Pt denies any numnbes or tingling. foot pain Location: foot. Additional information: Pt failed NSAD and she had negative right foot xray. Phsycal Pt needs annual physical. pt has chronic allergy and she is doing ok with signualir. Pt takes zoloft for anxiety and doing ok. Pt denies any suicidal thought. pt c/o right foot pain for two monthts Pt denies any injury Pt denies any numnbess. Pt denies any heel pain. Pt states that sometiems she has worsening pain in the morning. Pt has not worked out for 3 weeks. Pt was doing more work up several months ago. Instructions Date Instruction Additional Infor yunion Prescribed Diet Educ ation/Lifestyle Education Regarding Diet Related to Dietary Surveillance and Counseling Prescribed Activity and Exercise Education Related to Dietary Surveillance and Counseling Decrease caloric intake Related to Dietary surveillance counseling Dietary counseling Related to Di etary surveillance counseling Decrease caloric intake Related to Dietary surveillance counseling Dietary counseling Related to Di etary surveillance counseling Assessments Type Assessment Date No Information
--- OUTSIDE RECORDS SUMMARY | 2025-01-04 14:12 | XMS_ITS | Referral Summary ---
Author Organization [facility] Address [facility] [place] [address] Care Team Providers Care Environmental Department Manager Name Role Phone Caitlinradhawaleska Sky Carson DO Primary Care Provider Wale Unger MD Unavailable Felipe Burleson MD Unavailable [phone] Source Comments [facility],non-owned Affiliates and Associated Physician Practices is amultiple site organization consisting of ambulatory clinics and hospital sitesin [place], [place], [place] and [place]. This disclosure is being madepursuant to the Care Everywhere program and may not contain all information available regarding this patient. Last updated 18.[facility] Allergies No known active allergies Medications * [...] Date Supervision of elderly multigravida in [facility] 10/04/2015 Advanced maternal age in multigravida [...] 05/20/2017 10:16 AM CDT Plan of Treatment Not on file Care Teams Environmental Department Manager Relationship Specialty Start Date End Date Sky Boswell DO PCP - General Internal Medicine 05/20/17 [place] [address] [place] [id number] Endocrinology 05/20/17 Felipe Burleson MD [address] [place], [place] [address] Obstetrics and Gynecology 05/20/17
--- OUTSIDE RECORDS SUMMARY | 2025-01-04 14:13 | XMS_ITS | Referral Summary ---
Author Organization [facility] Address [address] [place] [address] Care Team Providers Care Plumber Assistant Name Role Phone Sky Boswell DO Primary Care Provider [phone] Allergies No known active allergies Medications albuterol HFA (ProAir HFA) 90 mcg/actuation inhaler ProAir HFA 90 mcg/actuation aerosol inhaler INL 2 PFS PO QID Active azelastine (ASTELIN) 137 mcg (0.1 %) nasal spray azelastine 137 mcg (0.1 %) nasal spray aerosol U 2 SPRAYS IEN BID Active levocetirizine (Xyzal) 5 mg tablet daily Active montelukast (SINGULAIR) 10 mg tablet montelukast 10 mg tablet TK 1 T PO QD Active sertraline (ZOLOFT) 50 mg tablet sertraline 50 mg tablet Active melatonin 1 mg tablet,chewable Take by mouth Active multivit with calcium,iron,mi n (MULTIPLE VITAMIN, WOMENS ORAL) Take by mouth Active Active Problems No known active problems Social History Tobacco Use Types Packs/Day Years Used Date Smoking Tobacco: Former AUDIT-C Answer Date Recorded Q1: How often do you have a drink containing alc ohol? 2-4 times a month 09/26/2021 Average Number of Drinks Not on file 021 Frequency of Binge Drinking Not on file 04/2021 Personal Safety Answer Date Recorded Getting School Help Needed Not on file 01/04 Comments Unknown Sex and Gender Information Value Date Recorded Sex Assigned at Not on file Legal Sex Female 9:13 PM DATA PROCESSING CONTROL CLERK Gender Identity Not on file Sexual Orientation Not on file Last Filed Vital Signs Vital Sign Reading Time Taken Comments Blood Pressure 133/74 09/26/2021 1:02 PM DATA PROCESSING CONTROL CLERK Pulse 73 09/26/2021 1:02 PM DATA PROCESSING CONTROL CLERK Temperature 36.7 C (98 F) 09/26/2021 1:02 PM DATA PROCESSING CONTROL CLERK Respiratory Rate - - Oxygen Saturation 98% 04/09/2018 11:03 AM CDT Inhaled Oxygen Concentration - - Weight 78.2 kg (172 lb 6.4 oz) 09/26/2021 1:02 P M DATA PROCESSING CONTROL CLERK Height 160 cm (5' 3 ) 09/26/2021 1:02 PM DATA PROCESSING CONTROL CLERK Body Mass Index 30.54 09/26/2021 1:02 PM DATA PROCESSING CONTROL CLERK Plan of Treatment Not on file Insurance [place] CHOICE PRF [place]PO [place] [facility] Care Teams Plumber Assistant Relationship Specialty Start Date End Date Sky Boswell DO PCP - General Internal Medicine 09/26/21
--- OUTSIDE RECORDS SUMMARY | 2025-01-04 14:13 | XMS_ITS | Clinical Summary ---
Author Organization [facility] Address [address] [place] [address] Care Team Providers Care Boiler Coverer Name Role Phone Sky Boswell DO Primary Care Provider [phone] Allergies No known active allergies Medications albuterol [...] Active Active Problems No known active problems Medical History Medical History Date Comments Depression Asthma Miscarriage Family History Medical History Relation Name Comments Asthma Brother ADD / ADHD Daughter Asthma Daughter Relation Name Status Comments Brother Daughter Social History Tobacco Use Types Packs/Day Years [...] on file Legal Sex Female 9:13 PM ENVIRONMENTAL MARKETER Gender Identity Not on file Sexual Orientation Not on file Obstetrics History Last Filed Vital Signs Vital Sign Reading Time Taken Comments Blood Pressure 133/74 09/26/2021 1:02 PM ENVIRONMENTAL MARKETER Pulse 73 09/26/2021 1:02 PM ENVIRONMENTAL MARKETER Temperature 36.7 C (98 F) 09/26/2021 1:02 PM ENVIRONMENTAL MARKETER Respiratory Rate - - Oxygen Saturation 98% 04/09/2018 11:03 AM CDT Inhaled Oxygen Concentration - - Weight 78.2 kg (172 lb 6.4 oz) 09/26/2021 1:02 P M ENVIRONMENTAL MARKETER Height 160 cm (5' 3 ) 09/26/2021 1:02 PM ENVIRONMENTAL MARKETER Body Mass Index 30.54 09/26/2021 1:02 PM ENVIRONMENTAL MARKETER Plan of Treatment Not on file Insurance CHOICE PRF P[place] [facility] Care Teams Boiler Coverer Relationship Specialty Start Date End Date Sky Boswell DO PCP - General Internal Medicine 09/26/21
--- OUTSIDE RECORDS SUMMARY | 2025-01-04 14:13 | XMS_ITS ---
Author Organization [facility] Address [address] [place] [address] Care Team Providers Care Mba Intern Name Role Phone Sky Boswell Primary Care Provider Unavailab le Lina Verma Unavailable [phone] ZZ-Migration, Provider Unavailable Unavailab le REASON FOR VISIT [facility] Conversion Encounter Medications Medication SIG (Take, Route, Frequency, Duration) Notes Start Date End Date Status Xyzal Allergy 24HR 5 MG 1 tablet PO daily for 30 Active NASAL WASHES N/A DIRECTED INTRANASALLY NEEDED for 30 *Please review for potential replacement for e-prescription and drug interaction check* Active Zoloft 50 MG 1 tab(s) orally once a day for 30 day(s) Active Azelastine HCl 137 MCG/SPRAY 2 spray(s) intranasally 2 times a day for 90 days Active PROAIR HFA 90 MCG/INH 2 PUFF(S) INHALED 4 TIMES A DAY for 30 DAY(S) *Please review for potential replacement for e-prescription and drug interaction check* Active Singulair 10 MG 1 tab(s) orally once a day for 90 days Active Encounters Encounter Location Date Provider Diagnosis [facility] [address] [place] [address] 04/04/2024 Provider ZZ-Migration Mild persistent asthma, uncomplicated J45.30 and Allergic rhinitis due to pollen J30.1 Assessments Encounter Date Diagnosis (ICD Code) Assessment Notes Treatment Notes Treatment Clinical Notes Section Notes 04/04/2024 Mild persistent asthma, uncomplicated (ICD-10 - J45.30) 04/04/2024 Allergic rhinitis due to pollen (ICD-10 - J30.1) Plan Of Treatment Medication Medication Name Sig Start Date Stop Date Notes Xyzal Allergy 24HR 5 MG 1 tablet PO daily for 30 NASAL WASHES N/A DIRECTED INTRANASALLY NEEDED for 30 *Please review for potential replacement for e-prescription and drug interaction check* Azelastine HCl 137 MCG/SPRAY 2 spray(s) intranasally 2 times a day for 90 days PROAIR HFA 90 MCG/INH 2 PUFF(S) INHALED 4 TIMES A DAY for 30 DAY(S) *Please review for potential replacement for e-prescription and drug interaction check* Singulair 10 MG 1 tab(s) orally once a day for 90 days Progress Notes * SHO HerbB:1980 (44 yo F)Acc No.[id number]:04/04/2024 Patient: Jackie NOVAK Provider: Madhuri Rosado :1980 A ge:43 Y S ex:Female Date:04/04/2024 Address:[address] [place], [place] [id number] Pcp:Sky Boswell Subjective: * Chief Complaints: * [facility] . [facility] * Medical History: * Medications: T aking Zoloft 50 MG Tablet 1 tab(s) orally once a day Objective: * Vitals: Assessment: * Assessment: 1. M ild persistent asthma, uncomplicated - J45.30 2 . A llergic rhinitis due to pollen - J30.1 Plan: * Treatment: 2. A llergic rhinitis due to pollen Continue NASAL WASHES 1 QUART OF STERILIZED TAP WATER OR DISTILLED WATER, 1 TSP NACL, 1 PINCH OF BAKING SODA, N/A, DIRECTED, INTRANASALLY, NEEDED, 30, QS, Refills PRN, Notes to Pharmacist: *Please review for potential replacement for e-prescription and drug interaction check*; C ontinue Xyzal Allergy 24HR Tablet, 5 MG, 1 tablet, PO, daily, 30, 30, Refills 3. 3. O thers Start Azelastine HCl Solution, 137 MCG/SPRAY, 2 spray(s), intranasally, 2 times a day, 90 days, 3, Refills 3. * Billing Information: * Visit Code: * Procedure Codes: * Electronic signature of Tameka NEVILLE-Migration on 01/04/2025 at 02:12 PM CDT Sign off status: Pending * Provider: Madhuri sevilla Migration Date: 0 04/04/2024 Generated for Solo larose/Lea/Jadynitting on: 0 01/04/2025 02:12 PM CDT
--- OUTSIDE RECORDS SUMMARY | 2025-01-04 14:13 | XMS_ITS | Continuity of Care Document ---
Author Organization [facility] Address [address] [place] [address] [place] [address] Phone Care Team Providers Care Mail Processing Machine Operator Name Role Phone Leodan Barnhart MD Unavailable Unavailable Allergies, Adverse Reactions, Alerts Substance Reaction Status Criticality No Known Allergies Active No Inform ation Medications Medication Instructions Dosage Effective Dates (start - stop) Status Comments Zoloft 50 mg tablet take 1 tablet (50MG) by oral route every day 50 MG - Active Singulair 10 mg tablet take 1 tablet (10MG) by oral route every day in the evening 10 MG - Active naproxen 500 mg tablet take 1 tablet by oral route 2 times every day with food 500 MG - Active Procedures Procedure Date OFFICE/OUTPATIENT VISIT, EST PREV VISIT, EST, AGE 18-39 OFFICE/OUTPATIENT VISIT, EST PREV VISIT, EST, AGE 18-39 OFFICE/OUTPATIENT VISIT, EST PREV VISIT, NEW, AGE 18-39 Advance Directives Directive Yes / No Effective Date File Name No Information Encounters Encounter Description Practice Location Reason(s) For Visit Diagnoses Date Provider Providers Copied on Encounter [facility], [address] [place], [address], tel:[phone] [facility] Medicine No Information 6 Obey Alcocer. [address] [facility] [place], [address] , [place]. tel:[phone] Referring Provider: Leodna Barnhart, [address] [facility] [address], [place], [place], [address]. tel:[phone] OFFICE/OUTPA TIENT VISIT, EST [facility], [address], [place], [place], [address], [place] tel:[phone] [facility] Medicine cyst (chief complaint) foot pain (chief complaint) foot pain (chief complaint) Joint ganglion cystFoot pain 5 Obey Alcocer. [address], [place], [place], [address] , [place]. [phone] Referring Provider: Rajiv [address], [place], [place], [address]. tel:[phone] PREV VISIT, EST, AGE 18-39 [facility], [address], [place], [place], [address], [place] tel:[phone] [facility] Phsycal (chief complaint) Dietary surveillance and counselingRoutine medical exam 5 Obey Alcocer. [address], [place], [place], [address] , [place]. tel:[phone] Referring Provider: Rajiv [address], [place], [place], [address]. tel:[phone] OFFICE/OUTPA TIENT VISIT, EST [facility], [address], [place], [place], [address], [place] [phone] [facility] Medicine anixety (chief complaint) allergy (chief complaint) thyroid nodule (chief complaint) seasick (chief complaint) AsthmaNontoxic uninodular goiterMotion sicknessGeneralized anxiety disorder Jan- 5 Obey Alcocer. [address], [place], [place], [address] , [place]. [phone] Referring Provider: Rajiv [address], [place], [place], [address]. tel:[phone] PREV VISIT, EST, AGE 18-39 [facility], [address], [place], [place], [address], [place] tel:[phone] [facility] PHysical (chief complaint) Routine Medical ExamRoutine Medical Exam 4 Obey Alcocer. [address], [place], [place], [address] , [place]. tel:[phone] Referring Provider: Leodan Barnhart, [address], [place], [place], [address]. tel:[phone] OFFICE/OUTPA TIENT VISIT, [facility], [address], [place], [place], [address], [place] tel:[phone] [facility] asthma (chief complaint) Dietary surveillance and counselingAsthma 3 Obey Alcocer. [address], [place], [place], [address] , [place]. tel:[phone] Referring Provider: Rajiv [address], [place], [place], [address]. tel:[phone] PREV VISIT, NEW, AGE 18-39 [facility], [address], [place], [place], [address], [place] tel:[phone] [facility] physical (chief complaint) Dietary surveillance and counselingRoutine Medical ExamRoutine Medical Exam 2 Obey Alcocer. [address], [place], [place], [address] , [place]. tel:[phone] Referring Provider: Rajiv Elliott [facility] [address], [place], [place], [address]. tel:[phone] Family History Family Member Type Diagnosis Age [...] months ago. Instructions Date Instruction Additional Infor mation Prescribed Activity and Exercise Education Related to Dietary Surveillance and Counseling Prescribed Diet Educ ation/Lifestyle Education Regarding Diet Related to Dietary Surveillance and Counseling Dietary counseling Related to Di etary surveillance counseling Decrease caloric intake Related to Dietary surveillance counseling Dietary counseling Related to Di etary surveillance counseling Decrease caloric intake Related to Dietary surveillance counseling Assessments Type Assessment Date No Information
== END 2025-01-04 12:03 | disposition home or self-care (01) ==
PROVIDERS: Emergency Provider Nurse Practitioner; PCP Internal Medicine
DX: N30.00 Acute cystitis without hematuria (principal); B96.20 Unspecified Escherichia coli [E. coli] as the cause of diseases classified elsewhere; J45.909 Unspecified asthma, uncomplicated; E66.9 Obesity, unspecified; Z68.24 Body mass index [BMI] 24.0-24.9, adult; F41.9 Anxiety disorder, unspecified; Z87.891 Personal history of nicotine dependence
CPT/HCPCS: 81003; 87086; 87186; 99213; G0463

== ENCOUNTER 2025-06-08 15:05 | Outpatient (CLI) | payer OTHER, SELFPAY ==
--- NOTE | ~2025-06-08 | MM_ITS ---
EXAMINATION: MM screening christi BI w chelsey HISTORY: Screening mammogram TECHNIQUE: Craniocaudal and mediolateral oblique 3-D tomosynthesis images were obtained and synthetic 2-D images were generated. CAD analysis was submitted and interpreted. COMPARISON: 06/06/2024, 02/05/2023, 08/22/2020 BREAST PARENCHYMAL COMPOSITION:Dense: The breasts are heterogeneously dense, which may obscure small masses. FINDINGS: No suspicious mass, calcification, or architectural distortion are identified in either breast to suggest malignancy. There has been no suspicious interval change. IMPRESSION: No mammographic evidence of malignancy. Recommend routine screening mammography in one year. BI-RADS Category 1: Negative Reviewed, dictated and finalized at location .
== END 2025-06-08 15:06 | disposition home or self-care (01) ==
LOC: MICIMG 15:06
PROVIDERS: PCP Obstetrics & Gynecology Gynecology; Visit Provider Obstetrics & Gynecology
DX: Z12.31 Encounter for screening mammogram for malignant neoplasm of breast (principal)
CPT/HCPCS: 77063; 77067